=== PATIENT | male | born 2000 | race Caucasian/White ===

== ENCOUNTER 2022-03-03 13:56 | Inpatient (IN) | payer OTHER ==
[2022-03-03] MEDS ORDERED: MAGNESIUM CITRATE 300 ML BOTTLE PO PRN (14:48)
[2022-03-03] MEDS ORDERED: MAG HYDROX/AL HYDROX/SIMETH 30 ML UNIT-DOSE CUP PO PRN (14:48)
[2022-03-03] MEDS ORDERED: ACETAMINOPHEN 325 MG TABLET (FP) PO PRN (14:48)
[2022-03-03] MEDS ORDERED: MAGNESIUM HYDROX 2400MG/30ML ORAL SUSPENSION 30 ML CUP PO PRN (14:48)
[2022-03-03] MEDS ORDERED: LOPERAMIDE HCL 2 MG CAPSULE PO PRN (14:48)
[2022-03-03] MEDS ORDERED: P-EPHED 60MG/TRIPROLIDI 2.5MG TABLET PO PRN (14:48)
[2022-03-03] MEDS ORDERED: IBUPROFEN 400 MG TABLET (FP) PO PRN (14:48)
[2022-03-03] MEDS ORDERED: guaiFENesin 200 MG/10 ML 10 ML UNIT-DOSE CUPS PO PRN (14:48)
[2022-03-03] MEDS ORDERED: NALOXONE HCL (KLOXXADO) 8 MG SPRAY NS PRN (14:48)
[2022-03-03 19:54] VITALS: BMI 23.6
[2022-03-03] MEDS: NICOTINE 10 MG CARTRIDGE (INHALER) IH PRN (21:56)
[2022-03-03] MEDS: hydrOXYzine PAMOATE 25 MG CAPSULE (FP) PO SCH ×2 (21:58→22:05)
[2022-03-03] MEDS: NICOTINE 7 MG/24 HOURS TOPICAL PATCH TD SCH (21:58)
[2022-03-03] MEDS: THIAMINE HCL 100 MG TABLET (FP) PO SCH (21:59)
[2022-03-03] MEDS: MELATONIN 5 MG TABLETS PO SCH (21:59)
[2022-03-03] MEDS ORDERED: TUBERCULIN PPD 5 TU/0.1ML VIAL ID ONE (22:02)
[2022-03-04] MEDS: hydrOXYzine PAMOATE 25 MG CAPSULE (FP) PO SCH ×5 (06:15→21:25)
[2022-03-04] MEDS: PRENATAL VITAMINS W/ FOLIC ACID TABLET (FP) PO SCH (10:25)
[2022-03-04] MEDS: NICOTINE 7 MG/24 HOURS TOPICAL PATCH TD SCH (10:25)
[2022-03-04] MEDS: NICOTINE 10 MG CARTRIDGE (INHALER) IH PRN ×2 (10:25→21:25)
[2022-03-04 11:48] LABS: HEMATOCRIT 41.5 % (35.4-49); MCH 27.5 pg (25.7-33.7); MCHC 33.6 g/dl (32.0-35.9); MEAN CELL VOLUME 81.7 fl (80-96); MEAN PLT VOLUME 9.3 fl (7.5-11.1); PLATELET COUNT 229 10^3/uL (134-434); RBC 5.08 M/mm3 (4.00-5.60); RDW 14.2 % (11.9-15.9)
[2022-03-04 12:07] LABS: CALCIUM 9.4 mg/dL (8.5-10.1)
[2022-03-04 12:08] LABS: ALBUMIN 3.6 g/dl (3.4-5.0); BLOOD UREA NITROGEN 8.9 mg/dL (7-18)
[2022-03-04 12:11] LABS: CREATININE 0.7 mg/dL (0.55-1.3)
[2022-03-04 12:13] LABS: TOT PROT 6.6 g/dl (6.4-8.2)
[2022-03-04 12:16] LABS: BILIRUBIN,TOTAL 0.3 mg/dL (0.2-1)
[2022-03-04 12:21] LABS: URINE APPEARANCE TURBID; URINE BILIRUBIN NEGATIVE (NEGATIVE); URINE COLOR YELLOW; URINE GLUCOSE (UA) NEGATIVE (NEGATIVE); URINE KETONE NEGATIVE (NEGATIVE); URINE LEUK ESTERASE NEGATIVE (NEGATIVE); URINE NITRITE NEGATIVE (NEGATIVE); URINE PROTEIN NEGATIVE (NEGATIVE); URINE UROBILINOGEN 0.2 mg/dL (0.2-1.0)
[2022-03-04 12:33] LABS: SYPHILIS W/ RPR CONF NON-REACTIVE (NONREACTIVE)
[2022-03-04] MEDS: THIAMINE HCL 100 MG TABLET (FP) PO SCH (21:25)
[2022-03-04] MEDS: MELATONIN 5 MG TABLETS PO SCH (21:25)
[2022-03-05] MEDS: hydrOXYzine PAMOATE 25 MG CAPSULE (FP) PO SCH ×2 (06:17→10:30)
[2022-03-05] MEDS: NICOTINE 10 MG CARTRIDGE (INHALER) IH PRN (06:18)
[2022-03-05 07:04] VITALS: BP 134/77; PULSE 71; TEMP 98.1
[2022-03-05] MEDS: PRENATAL VITAMINS W/ FOLIC ACID TABLET (FP) PO SCH (10:29)
[2022-03-05] MEDS: NICOTINE 7 MG/24 HOURS TOPICAL PATCH TD SCH (10:29)
== END 2022-03-05 12:06 | disposition left against medical advice (07) | DRG 770 ==
LOC: YASAS 13:56 → Y5N 17:24 → Y3W 20:20
PROVIDERS: ADMIT Allergy & Immunology; ATTEND Allergy & Immunology
PROC: HZ42ZZZ Group Counseling for Substance Abuse Treatment, Cognitive-Behavioral (ICD-10-PCS; principal; 2022-03-03)
DX: F11.20 Opioid dependence, uncomplicated (principal); F13.20 Sedative, hypnotic or anxiolytic dependence, uncomplicated; F14.20 Cocaine dependence, uncomplicated; F12.20 Cannabis dependence, uncomplicated; F17.210 Nicotine dependence, cigarettes, uncomplicated
CPT/HCPCS: 36415; 80053; 81003; 85027; 86780; 86803; 93005; 93010; C9803-CS; U0003; U0005